=== PATIENT | male | born 1975 ===

== ENCOUNTER 2022-02-25 06:21 | Day surgery (SDC) | payer OTHER ==
[~2022-02-25 06:21] MED LIST: ALLEGRA ALLERGY60 MG PO; FLONASE16 GM
[2022-02-25] MEDS ORDERED: SURFAK240 M1 PO (11:15)
[2022-02-25] MEDS ORDERED: ULTRACET PO (11:15)
== END 2022-02-25 17:35 | disposition home or self-care (01) ==
LOC: CIR.AMB 06:21
PROVIDERS: ATTEND Surgery
DX: K42.0 Umbilical hernia with obstruction, without gangrene (principal); Z20.822 Contact with and (suspected) exposure to COVID-19; Z91.011 Allergy to milk products